=== PATIENT | female | born 1995 | race African-American/Black ===

== ENCOUNTER 2020-09-21 18:30 | Emergency (ER) | payer SELFPAY ==
[2020-09-21] MEDS ORDERED: predniSONE 20 MG TAB ONE (19:01)
[2020-09-21] MEDS ORDERED: Albuterol Sulfate 2.5 mg/3 ml Neb ONE ×2 (19:14→20:16)
--- NOTE | 2020-09-21 19:18 | RAD ---
RADIOGRAPH CHEST 1 VIEW: DATE: 09/21/2020 HISTORY: 25-year-old female with dyspnea, chest pain, and cough FINDINGS: There are no airspace densities, pulmonary edema, pneumothorax, or cardiomegaly. The lateral costophr enic angles are sharp. IMPRESSION: No acute cardiopulmonary findings.
== END 2020-09-21 20:33 | disposition home or self-care (01) ==
LOC: ERS 18:30
DX: J98.01 Acute bronchospasm (principal); F17.210 Nicotine dependence, cigarettes, uncomplicated; Z79.51 Long term (current) use of inhaled steroids
CPT/HCPCS: 71045; 93005; 94640; J7512; J7611; J7620